=== PATIENT | female | born 1970 | race Caucasian/White ===

== ENCOUNTER → 2019-12-24 11:17 | Outpatient (BNVA) | payer OTHER, BC, SELFPAY | PROVIDERS: Family Provider Internal Medicine; PCP Internal Medicine; Visit Provider Internal Medicine Rheumatology | DX: M32.9 Systemic lupus erythematosus, unspecified (principal); R53.83 Other fatigue; Z79.899 Other long term (current) drug therapy; Z11.59 Encounter for screening for other viral diseases; Z72.89 Other problems related to lifestyle | CPT/HCPCS: 36415; 80076; 81001; 82306; 82565; 82570; 83540; 84156; 84439; 84443; 85025; 85651; 86140; 86160; 86480; 86618; 86666; 86704; 86757; 86803; 87340 ==

== ENCOUNTER → 2020-06-06 11:31 | Outpatient (BNVA) | payer OTHER, BC, SELFPAY | PROVIDERS: Family Provider Internal Medicine; PCP Internal Medicine; Visit Provider Internal Medicine Rheumatology | DX: M32.9 Systemic lupus erythematosus, unspecified (principal); Z79.899 Other long term (current) drug therapy; R76.8 Other specified abnormal immunological findings in serum; M79.7 Fibromyalgia; M25.551 Pain in right hip; R21 Rash and other nonspecific skin eruption; M70.61 Trochanteric bursitis, right hip; Y93.9 Activity, unspecified | CPT/HCPCS: 36415; 80076; 81001; 82565; 82570; 84156; 85025; 85651; 86140; 86160; 99214 ==

== ENCOUNTER → 2020-06-28 16:08 | Outpatient (BNVA) | payer OTHER, BC, SELFPAY | PROVIDERS: Family Provider Internal Medicine; PCP Internal Medicine; Visit Provider Internal Medicine Rheumatology | DX: M32.9 Systemic lupus erythematosus, unspecified (principal); M79.7 Fibromyalgia; R21 Rash and other nonspecific skin eruption; K57.92 Diverticulitis of intestine, part unspecified, without perforation or abscess without bleeding; M17.0 Bilateral primary osteoarthritis of knee; M70.61 Trochanteric bursitis, right hip; Z79.899 Other long term (current) drug therapy; Y93.9 Activity, unspecified | CPT/HCPCS: 99214 ==

== ENCOUNTER 2020-07-11 14:10 | Outpatient (CLI) | payer OTHER, BC, SELFPAY ==
--- NOTE | 2020-07-11 14:18 | MM_ITS ---
WS: [id number] Exam: [id number] Date/Time of Exam: 07/11/2020 2:21 PM Reason For Exam: SCREENING VIEWS: MLO and CC views both breasts. Comparison made with prior exam of 08/01/2016. Findings: There was no sign of mass, architectural distortion or suspicious calcification in either breast. Fa tty MM/[id number] Impression: BI-RADS: 2-Benign FOLLOW-UP: 1 Year Follow-up This mammogram was also analyzed by the Computer Aided Detection System R2 Imag e Scientific Investigator.
== END 2020-07-11 14:11 | disposition home or self-care (01) ==
LOC: RADSHAW 14:16
PROVIDERS: PCP Internal Medicine; Visit Provider Obstetrics & Gynecology
DX: Z12.31 Encounter for screening mammogram for malignant neoplasm of breast (principal)
CPT/HCPCS: 77067

== ENCOUNTER → 2020-08-30 12:54 | Outpatient (BNVA) | payer OTHER, BC, SELFPAY | PROVIDERS: PCP Internal Medicine; Visit Provider Internal Medicine Rheumatology | DX: M32.9 Systemic lupus erythematosus, unspecified (principal); Z79.899 Other long term (current) drug therapy; M25.551 Pain in right hip; M79.7 Fibromyalgia; M18.12 Unilateral primary osteoarthritis of first carpometacarpal joint, left hand; R76.8 Other specified abnormal immunological findings in serum | CPT/HCPCS: 36415; 81001; 82570; 84156; 99214 ==

== ENCOUNTER → 2020-11-24 16:16 | Outpatient (BNVA) | payer OTHER, BC, SELFPAY | PROVIDERS: PCP Internal Medicine; Visit Provider Nurse Practitioner Family | DX: R30.0 Dysuria (principal) | CPT/HCPCS: 81000; 87086 ==

== ENCOUNTER → 2021-01-03 15:07 | Outpatient (BNVA) | payer OTHER, BC, SELFPAY | PROVIDERS: PCP Internal Medicine; Visit Provider Internal Medicine Rheumatology | DX: M32.9 Systemic lupus erythematosus, unspecified (principal); Z79.899 Other long term (current) drug therapy; G47.33 Obstructive sleep apnea (adult) (pediatric); M79.7 Fibromyalgia; M18.12 Unilateral primary osteoarthritis of first carpometacarpal joint, left hand; K57.92 Diverticulitis of intestine, part unspecified, without perforation or abscess without bleeding | CPT/HCPCS: 99214 ==

== ENCOUNTER 2021-02-15 10:14 | Outpatient (CLI) | payer OTHER, BC, SELFPAY ==
--- NOTE | 2021-02-15 10:24 | NMR_ITS ---
PROCEDURE INFORMATION: Exam: ID Kidney Imaging with Vascular Flow and Function, Single Study, with Pharmacological Intervention Exam date and time: 02/15/2021 10:24 AM Age: 50 years old Clinical indication: Condition or disease; Other: Upj obstruction TECHNIQUE: Imaging protocol: Kidney imaging morphology with angiographic images were obtained after diuretic or AWAIS inhibitor was administered and additional planar images were obtained. after radiopharmaceutical administration. This radiotracer utilized for calculation of the GFR. Radiopharmaceutical: 10.9 mCi Tc99m DTPA, 20 mg LASIX. COMPARISON: ID Renal w Lasix [place] [id number] 02/03/2017 8:21 AM FINDINGS: Medications: The Lasix renogram was performed using 20 mg of Lasix at 10 minutes Kidneys: The angiographic phase shows unremarkable relative decreased radiotracer uptake in the right kidney compared to the left, essentially unchanged. Peak perfusion in the left kidney occurs at approximately 45 seconds (previously occurred at approximately 23 seconds). Accumulation of radiotracer uptake within a dilated right renal pelvis. Left renal function: Left 58% at 2 to 3 minutes (previously 62%). Time to peak in the left kidney is 3.62 minutes, essentially unchanged. Right renal function: Right 42% at 2 to 3 minutes (previously 38%). Time to peak in the right kidney is 7.62 minutes (previously 13.7 minutes). Left renal GFR: Left calculated GFR (ml/min) is 51.2 (previously 67.7). Right renal GFR: Right calculated GFR (ml/min) is 37.1 (previously 41.6). Post Lasix Left Kidney: Left T1/2 is 9.75 minutes after Lasix. Slight bump in renal excretion after Lasix. Post Lasix Right kidney: Right T1/2 is 8.5 minutes after Lasix. Slight bump in renal excretion after Lasix. ID/ID renal flow w pharm [id number] IMPRESSION: 1. Relative decreased perfusion in the right kidney compared to the left, essentially unchanged. 2. Perfusion in the left kidney is delayed compared to the previous nuclear medicine study. 3. Split renal function is 42% on the right and 58% on the left. 4. Decreasing GFR in both kidneys. 5. Stable dilatation of the right renal pelvis.
== END 2021-02-15 10:15 | disposition home or self-care (01) ==
LOC: RAD 10:16
PROVIDERS: PCP Internal Medicine; Visit Provider Urology
DX: N13.5 Crossing vessel and stricture of ureter without hydronephrosis (principal)
CPT/HCPCS: 78708; A9539; J1940

== ENCOUNTER 2021-03-27 14:04 | Outpatient (CLI) | payer OTHER, BC, SELFPAY ==
--- NOTE | 2021-03-27 | US_ITS ---
WS: [id number] Right upper quadrant ultrasound, 03/27/2021 Clinical Data: LIVER CYST Comparison: None. Findings: The gallbladder is absent The common bile duct is 0.20 cm. Liver shows no masses or dilated intrahepatic ducts. There is a simple cyst of the right lobe measur ing 1.90 x 1.98 x 2.25 cm. There is a complex left lobe cyst measuring 1.48 x 1.56 x 1.84 cm which downey s a mixed echotexture. The pancreas is not obscured by overlying bowel gas and no cyst, pseudocyst, or evidence of pancreati tis is noted. Right kidney measures 11.6 cm and no cyst, masses or hydronephrosis can be seen. The aorta and inferior vena cava show no vascular abnormalities. US/US liver [id number] Impression: 1. Absent gallbladder. 2. 2 cysts of the liver.
== END 2021-03-27 14:05 | disposition home or self-care (01) ==
LOC: RADOUTREAD 14:24
PROVIDERS: PCP Internal Medicine; Visit Provider Internal Medicine
DX: K76.89 Other specified diseases of liver (principal); Z90.49 Acquired absence of other specified parts of digestive tract
CPT/HCPCS: 76705

== ENCOUNTER → 2022-01-23 16:06 | Outpatient (BNVA) | payer OTHER, BC, SELFPAY | PROVIDERS: PCP Internal Medicine; Visit Provider Internal Medicine Rheumatology | DX: M32.9 Systemic lupus erythematosus, unspecified (principal); M79.7 Fibromyalgia; M25.551 Pain in right hip; M25.561 Pain in right knee; M70.51 Other bursitis of knee, right knee; Z79.899 Other long term (current) drug therapy; M17.11 Unilateral primary osteoarthritis, right knee | CPT/HCPCS: 73502; 73562; 80076; 81001; 82565; 82570; 84156; 85025; 86140 ==

== ENCOUNTER 2022-01-24 08:56 | Outpatient (CLI) | payer OTHER, BC, SELFPAY ==
--- NOTE | 2022-01-24 09:18 | MM_ITS ---
WS: [id number] BILATERAL 3D TOMOSYNTHESIS DIGITAL SCREENING MAMMOGRAPHY WITH CAD CLINICAL INFORMATION: SCREENING HISTORY: Screening mammogram. No current complaints. COMPARISON: July 11, 2020 TECHNIQUE: Bilateral CC and MLO views. FINDINGS: Scattered fibroglandular densities bilaterally. No suspicious focal mass, asymmetry, calcifications, or architectural distortion. No evidence of malignancy. MM/[id number] IMPRESSION: BI-RADS: 1-Negative FOLLOW UP: 1 Year Follow-up Recommend return to annual screening mammography.
== END 2022-01-24 08:57 | disposition home or self-care (01) ==
LOC: RAD 08:57
PROVIDERS: PCP Internal Medicine; Visit Provider Internal Medicine
DX: Z12.31 Encounter for screening mammogram for malignant neoplasm of breast (principal)
CPT/HCPCS: 77063; 77067

== ENCOUNTER → 2022-11-12 12:22 | Outpatient (BNVA) | payer OTHER, BC, SELFPAY | PROVIDERS: PCP Internal Medicine; Visit Provider Internal Medicine Rheumatology | DX: M32.9 Systemic lupus erythematosus, unspecified (principal); Z79.899 Other long term (current) drug therapy; M79.7 Fibromyalgia | CPT/HCPCS: 80076; 82565; 85025; 86140 ==

== ENCOUNTER 2022-12-13 18:50 | Emergency (ER) | payer OTHER, BC, SELFPAY ==
[2022-12-13 19:05] VITALS: BP 138/57; PULSE 79; RESP 16; TEMP 36.8; O2SAT 98
[2022-12-13 20:45] LABS: Basophils # 0.1 10^3/uL (0.0-0.1); Eosinophils # 0.2 10^3/uL (0.0-0.8); Eosinophils % 3.3 %; Hematocrit 43.6 % (37.0-47.0); Hemoglobin 13.1 g/dL (11.5-15.3); Lymphocytes # 2.5 10^3/uL (0.8-4.8); Mean Corpuscular Hemoglobin 28.5 pg (28.0-34.0); Monocytes # 0.4 10^3/uL (0.2-0.9); Monocytes % 5.7 %; Neutrophils # 3.96 10^3/uL (1.8-7.7); Neutrophils % 54.9 %; Nucleated Red Blood Cells % 0 %; Platelet Count 245 10^3/cmm (130-400); Red Blood Count 4.59 10^6/uL (4.1-5.3); White Blood Count 7.2 10^3/uL (4.0-10.0)
[2022-12-13 21:06] LABS: Alanine Aminotransferase 18 U/L (0-33); Albumin Level 4.1 g/dL (3.5-5.2); Alkaline Phosphatase 100 U/L (35-105); Blood Urea Nitrogen 12 mg/dL (6-20); Calcium 9.1 mg/dL (8.5-10.5); Carbon Dioxide 21 mmol/L (22-29); Chloride 103 mmol/L (98-107); Globulin 2.6 g/dL (1.3-4.6); Glomerular Filtration Rate 104.2 mL/min (90-130); Glucose 93 mg/dL (65-115); Osmolality Calculated 283 mOsm/kg (285-295); Sodium 137 mmol/L (136-145); Total Bilirubin 0.2 mg/dL (0.15-1.2); Total Protein 6.7 g/dL (6.6-8.7)
[2022-12-13 21:08] LABS: Anion Gap 17.2 (5-19); Potassium 4.2 mmol/L (3.5-5.1)
[2022-12-13 21:09] LABS: Aspartate Amino Transferase 18 U/L (0-32)
[2022-12-13 22:01] LABS: Lipase 36 U/L (13-60)
[2022-12-13 23:09] VITALS: BP 126/68; PULSE 78; RESP 18
[2022-12-13 23:24] LABS: Add Urine Microscopic? NO; Charge for UA Resulting for Rev
--- NOTE | 2022-12-13 23:30 | CTR_ITS ---
PROCEDURE INFORMATION: Exam: CT Abdomen And Pelvis With Contrast Exam date and time: 12/14/2022 12:01 AM Age: 52 years old Clinical indication: Abdominal pain; Generalized; Additional info: Mid abdominal pain, large hernia, left abdominal swelling, just finished tx for TECHNIQUE: Imaging protocol: Computed tomography of the abdomen and pelvis with contrast. Radiation optimization: All CT scans at this facility use at least one of these dose optimization techniques: automated exposure control; mA and/or kV adjustment per patient size (includes targeted exams where dose is matched to clinical indication); or iterative reconstruction. Contrast material: OMNI 350; Contrast volume: 100 ml; Contrast route: INTRAVENOUS (IV); REPORTING DATA: Count of CT and Cardiac NM exams in prior 12 months: This patient has received 0 known CTs and 0 known cardiac nuclear medicine studies in the 12 months prior to the current study. COMPARISON: CT abdomen pelvis w con* [id number] 07/16/2019 7:22 PM RADIATION DOSE METRICS: Total DLP (mGy-cm): 1197.21 FINDINGS: Diaphragm: Small hiatal hernia. Liver: Hepatic steatosis. Cirrhotic liver suspected. Right hepatic lobe cyst. Gallbladder and bile ducts: Cholecystectomy. Pancreas: Normal. No ductal dilation. Spleen: Normal. No splenomegaly. Adrenal glands: Normal. No mass. Kidneys and ureters: Left kidney cyst, negative for follow up. Stable right kidney renal pelvis caliectasis. Stomach and bowel: Diverticulosis without diverticulitis. Appendix: No evidence of appendicitis. Intraperitoneal space: Unremarkable. No free air. No significant fluid collection. Vasculature: Unremarkable. No abdominal aortic aneurysm. Lymph nodes: Unremarkable. No enlarged lymph nodes. Urinary bladder: Unremarkable as visualized. Reproductive: Unremarkable as visualized. Bones/joints: Unremarkable. No acute fracture. Soft tissues: Large abdominal wall hernia containing bowel and omentum without dilation. CT/CT abdomen pelvis w con* [id number] IMPRESSION: 1. Negative for focal acute inflammatory process in the abdomen or pelvis. 2. Hepatic steatosis. 3. Cirrhotic liver suspected. 4. Cholecystectomy. 5. Right hepatic lobe cyst. 6. Small hiatal hernia. 7. Left kidney cyst, negative for follow up. 8. Large abdominal wall hernia containing bowel and omentum without dilation. 9. Diverticulosis without diverticulitis. 10. Stable right kidney renal pelvis caliectasis. COMMENTS: Consistent with the [employer] [employer]'s Incidental Findings Committee white paper (J Am Darius Radiol 2018): Any incidental renal lesion less than 1 cm or classified as too small to characterize, or any incidental cystic renal lesion characterized as simple-appearing, is likely benign. No follow-up imaging is recommended for these lesions per consensus recommendations based on imaging criteria.
[2022-12-13 23:31] LABS: Bilirubin Urine Neg (Negative); Blood Urine Neg (Negative); Glucose Urine UA Norm (Normal); Ketones Urine Negative (Negative); Leukocyte Esterase Urine Negative (Negative); Nitrate Urine Negative (Negative); Protein Urine Neg (Negative); Urine Appearance Clear (CLEAR); Urine Color Yellow (Yellow); Urobilinogen Urine Norm (Negative); pH Urine 6 (5-7)
--- NOTE | 2022-12-13 23:32 | ED_ITS ---
HPI - Abdominal Pain General: Chief Complaint: Abdominal Pain Stated Complaint: hernia, abd pain Time Seen by Provider: 12/13/22 23:00 Source: patient Mode of arrival: ambulatory Limitations: no limitations History of Present Illness: Patient presents emergency department today for evaluation treatment of mid and left-sided abdominal pain. Patient reports a recent history of diverticulitis for which she was seen and evaluated by her primary care doctor through [facility]. She states she was put on Cipro and Flagyl. She states she did have a hard time tolerating the Flagyl and states she did not take her last day or so of medication due to the diarrhea she was experiencing she did notice im provement and resolution of her left lower quadrant pain from her diverticulitis. However, she reports she is now having mid and left-sided abdominal pain. She has felt somewhat nauseated but has not had any vomiting. She has indicated that her bowel movements have returned back to her normal. S he has had chills but no fevers. She is still tolerating oral intake but, states her stomach feels extremely bloated. She has not had any dysuria and denies any mid back pain. She does have a known hernia. She reports she had a vertical in the past which resulted in a hernia which she states Jake had repaired many years ago. However, it started to return and, she has been seen and evaluated for repair but, was told she needs to lose weight. She reports it is continue to get worse and now has a second opinion through [facility] scheduled in a couple of weeks. However, she is concerned that the hernia may have gotten bigger and is beginning to cause her pain. She denies any known excessive straining or lifting recently. Review of Systems General: Reports: 10 or more systems reviewed and unremarkable except in HPI and below PFSH ED PFSH: Medical History Arthritis of carpometacarpal (CMC) joint of left thumb Fibromyalgia Greater trochanteric pain syndrome of right lower extremity High risk medication use Immunization counseling Pes anserine bursitis B/L Skin rash SLE (systemic lupus erythematosus) Tick bite Family History Other CAD (coronary artery disease) Cancer Diabetes Hypertension Rheumatoid arthritis Stroke Denies family history of Systemic lupus erythematosus (SLE) in adult Social History Smoking and tobacco status: never smoked Second hand smoke exposure: No Alcohol intake: never Substance/Drug Use: never Lives independently: Yes Household members: spouse Marital status: Current gender identity: Female Special mau needs: No Physical Exam Const: COMMON NORMALS: no acute distress, patient oriented x3 and alert HENMT: COMMON NORMALS: normocephalic, atraumatic, hearing grossly normal bilaterally and moist oral mucous membranes HEAD & SCALP: normocephalic and atraumatic Eye: COMMON NORMALS: Equal, round and reactive pupils present, EOMs intact bilaterally and conjunctivae normal CONJUNCTIVA: Yes conjunctivae normal PUPIL: Yes Equal, round and reactive pupils present Neck/C-Spine: COMMON NORMALS: full ROM and no JVD Lymph: LYMPHATIC: no lymphadenopathy noted Resp: COMMON NORMALS: normal respiratory effort, No retractions, No use of accessory muscles and clear to auscultation bilaterally AUSCULTATION: clear to auscultation bilaterally Cardio: COMMON NORMALS: no JVD, regular rate and regular rhythm RATE: regular rate RHYTHM: regular rhythm GI: OTHER: Patient does have auscultated bowel sounds throughout. However, patient has obvious bulging and swelling on the left side of her abdomen just off of the periumbilical region. She is tender to palpation in this area. Abdomen is still soft. She has no left lower quadrant tenderness and no left upper quadr ant tenderness. Patient has a wide, vertical scar through the umbilical region from previous surgery. : COMMON NORMALS: Yes no CVA tenderness BLADDER/KIDNEY EXAM: Yes no CVA tenderness Back/Pelvis: COMMON NORMALS: no CVA tenderness, no thoracic nor lumbar tenderness and thoraco-lumbar ROM normal Extremity: COMMON NORMALS: normal to inspection, full ROM and capillary refill normal Neuro: COMMON NORMALS: patient oriented x3 SENSORIUM/ORIENTATION: Yes alert Psych: COMMON NORMALS: mental status grossly normal, Normal thought process present, cooperative, normal affect and activity/motor behavior normal THOUGHT PROCESS: Normal thought process present Skin: COMMON NORMALS: no rashes or lesions noted and no wounds GENERAL SKIN EXAM: no rashes or lesions noted Course Vital Signs: Vital signs: Vital Signs Temperature 98.3 F 12/13/22 19:05 Pulse Rate 78 12/13/22 23:09 Respiratory Rate 18 12/13/22 23:09 Blood Pressure 126/68 12/13/22 23:09 Pulse Oximetry 98 12/13/22 19:05 Oxygen Delivery Me thod Room Air 12/13/22 19:05 MDM - Abdominal Pain Medical Decision Making Patient presented to the emergency department today for evaluation treatment of mid abdominal pain. Patient was recently treated for diverticulitis but, is hemodynamically stable without fever and has not been having diarrhea. Patient's lab work is generally unremarkable without any signs of elevated white blood cell count. Urinalysis is also clear. However, physical exam does show a bulge to the left side of her mid abdomen. She indicated a history of her hernia and with the obvious bulging and tenderness on her examination, did proceed on with a CT scan. CT had some incidental findings including liver findings and kidney cyst but, also found a large abdominal wall hernia with bowel and omentum though there was no signs of dilatation, inflammation, or incarceration. Patient has an upcoming appointment with general surgery to be evaluated for this hernia in a couple of weeks. At this time, I think she is stable to return home but, went over strict return precautions for signs of incarcerated hernia resulting in decreased blood flow to the bowel. Explained that this becomes a surgical emergency for which she is to be seen immediately. Patient is going to sign a medical release form to allow her imaging from today to be sent to her [facility] general surgeon to be evaluated and looked over at her appointment. Differential Diagnosis Likely abdominal pain, acute appendicitis, constipation, diverticulitis, gastroenteritis and small bowel obstruction Lab Data 12/13/22 20:37 12/13/22 20:37 Labs/Radiology: Radiology Impressions Abdomen/Pelvis CT 12/13/22 23:30 IMPRESSION: 1. Negative for focal acute inflammatory process in the abdomen or pelvis. 2. Hepatic steatosis. 3. Cirrhotic liver suspected. 4. Cholecystectomy. 5. Right hepatic lobe cyst. 6. Small hiatal hernia. 7. Left kidney cyst, negative for follow up. 8. Large abdominal wall hernia containing bowel and omentum without dilation. 9. Diverticulosis without diverticulitis. 10. Stable right kidney renal pelvis caliectasis. COMMENTS: Consistent with the [place] [employer]'s Incidental Findings Committee white paper (J Am Darius Radiol 2018): Any incidental renal lesion less than 1 cm or classified as too small to characterize, or any incidental cystic renal lesion characterized as simple-appearing, is likely benign. No follow-up imaging is recommended for these lesions per consensus recommendations based on imaging criteria. Laboratory Results WBC 7.2 10^3/uL (4.0-10.0) 12/13/22 20: RBC 4.59 10^6/uL (4.1-5.3) 12/13/22 20: Hgb 13.1 g/dL (11.5-15.3) 12/13/22 20: Hct 43.6 % (37.0-47.0) 12/13/22 20: MCV 95.0 fl (81-99) 12/13/22 20: MCH 28.5 pg (28.0-34.0) 12/13/22 20: MCHC 30.0 g/dL (30.0-36.0) 12/13/22 20: RDW 13.0 % (12.1-15.1) 12/13/22 20: Plt Count 245 10^3/cmm (130-400) 12/13/22 20: MPV 10.0 fL (7.4-10.4) 12/13/22 20: Neut % (Auto) 54.9 % 12/13/22 20: Lymph % (Auto) 35.0 % 12/13/22 20:37 [place] % (Auto) 5.7 % 12/13/22 20:37 Eos % (Auto) 3.3 % 12/13/22 20: Baso % (Auto) 1.0 % 12/13/22 20: Neut # (Auto) 3.96 10^3/uL (1.8-7.7) 12/13/22 20:37 Lymph # (Auto) 2.5 10^3/uL (0.8-4.8) 12/13/22 20:37 [place] # (Auto) 0.4 10^3/uL (0.2-0.9) 12/13/22 20:37 Eos # (Auto) 0.2 10^3/uL (0.0-0.8) 12/13/22 20:37 Baso # (Auto) 0.1 10^3/uL (0.0-0.1) 12/13/22 20:37 Nucleated RBC % (auto) 0 % 12/13/22 20:37 Nucleated RBCs # 0.0 /100WBC 12/13/22 20:37 Sodium 137 mmol/L (136-145) 12/13/22 20:37 Potassium 4.2 mmol/L (3.5-5.1) 12/13/22 20:37 Chloride 103 mmol/L (98-107) 12/13/22 20:37 Carbon Dioxide 21 mmol/L (22-29) L 12/13/22 20:37 Anion Gap 17.2 (5-19) 12/13/22 20:37 BUN 12 mg/dL (6-20) 12/13/22 20:37 Creatinine 0.6 mg/dL (0.5-0.9) 12/13/22 20:37 GFR Calculation 104.2 mL/min (90-130) 12/13/22 20:37 Glucose 93 mg/dL (65-115) 12/13/22 20:37 Calculated Osmolality 283 mOsm/kg (285-295) L 12/13/22 20:37 Calcium 9.1 mg/dL (8.5-10.5) 12/13/22 20:37 Total Bilirubin 0.2 mg/dL (0.15-1.2) 12/13/22 20:37 AST 18 U/L (0-32) 12/13/22 20:37 ALT 18 U/L (0-33) 12/13/22 20:37 Alkaline Phosphatase 100 U/L (35-105) 12/13/22 20:37 C-Reactive Protein 3.0 mg/L (0.0-4.9) 12/13/22 20:37 Total Protein 6.7 g/dL (6.6-8.7) 12/13/22 20:37 Albumin 4.1 g/dL (3.5-5.2) 12/13/22 20:37 Globulin 2.6 g/dL (1.3-4.6) 12/13/22 20:37 Lipase 36 U/L (13-60) 12/13/22 20:37 Urine Color Yellow (Yellow) 12/13/22 23:06 Urine Appearance Clear (CLEAR) 12/13/22 23:06 Urine pH 6 (5-7) 12/13/22 23:06 Ur Specific [place] 1.020 (1.005-1.030) 12/13/22 23:06 Urine Protein Neg (Negative) 12/13/22 23:06 Urine Glucose (UA) Norm (Normal) 12/13/22 23:06 Urine Ketones Negative (Negative) 12/13/22 23:06 Urine Blood Neg (Negative) 12/13/22 23:06 Urine Nitrate Negative (Negative) 12/13/22 23:06 Urine Bilirubin Neg (Negative) 12/13/22 23:06 Urine Urobilinogen Norm mg/dL (Negative) 12/13/22 23:06 Ur Leukocyte Esterase Negative (Negative) 12/13/22 23:06 Discharge Plan Discharge Patient Disposition: Home Clinical Impression: Abdominal wall hernia Condition: Stable Prescriptions: No Action montelukast [Singulair] 10 mg tablet 10 mg PO DAILY hydrochlorothiazide 12.5 mg tablet 12.5 mg PO DAILY lisinopril 5 mg tablet 5 mg PO DAILY oral contraceptives PO cholecalciferol (vitamin D3) 50 mcg (2,000 unit) capsule 50 mcg PO DAILY ascorbate calcium (vitamin C) 500 mg tablet 500 mg PO DAILY acetylcysteine [NAC] 600 mg capsule 600 mg PO BID levocetirizine [Xyzal] 5 mg tablet 5 mg PO DAILY bupropion HCl 75 mg tablet 75 mg PO DAILY hydroxychloroquine 200 mg tablet 200 mg PO BID Qty: 90 1RF prednisone 10 mg tablet See Rx Instructions PO .COMPLEX PRN (Reason: joint pain) Qty: 60 1RF Rx Instructions: Take 2 tabs daily for 5 days and call physician with report orally PRN; diclofenac sodium 1 % gel 2 g TOPICAL QID Qty: 100 2RF Rx Instructions: apply to affected area as needed Discharge Orders: Discharge ED (Routine); Ordered 12/14/22 Ordered By: Christa Swift Referrals: Pancho Roper DO [Primary Care Provider] - Discharge Diet: Usual diet Discharge Activity: Increase activity as tolerated Patient Instructions: Abdominal Hernia Activity Restrictions/Additional Instructions: Lab work today shows no acute concerns for infection. The scan of your abdomen shows resolution of your diverticulitis but, you do have a large abdominal wall hernia containing both intestine and omentum. Time, there is no signs of inflammation concerning for any bowel strangulation or incarceration. Keep the upcoming appointment you have with general surgery to discuss your hernia as I do think you would benefit from some type of repair due to its size. I have given you some information about abdominal wall hernias which does go over signs and symptoms including bloody stools, fever, or vomiting for which she need to be seen and reevaluated immediately through the emergency department. These could all indicate loss of blood flow to the bowel which becomes a surgical janelle gency. I also recommend getting a medical record release to allow the general surgeon at [facility] to receive a copy of your CT examination from today to review during your appointment. Coding Level of Care Code ED Server Cashier for German Kruger
== END 2022-12-14 01:30 | disposition home or self-care (01) ==
PROVIDERS: Emergency Medicine; Emergency Provider Physician Assistant; PCP Internal Medicine
DX: K43.9 Ventral hernia without obstruction or gangrene (principal); M32.9 Systemic lupus erythematosus, unspecified
CPT/HCPCS: 36415; 74177; 80053; 81003; 83690; 85025; 86140; 99285; Q9967

== ENCOUNTER → 2023-02-18 12:21 | Outpatient (BNVA) | payer OTHER, BC, SELFPAY | PROVIDERS: PCP Internal Medicine; Visit Provider Internal Medicine Rheumatology | DX: M32.9 Systemic lupus erythematosus, unspecified (principal); Z79.899 Other long term (current) drug therapy; M79.7 Fibromyalgia; M19.90 Unspecified osteoarthritis, unspecified site | CPT/HCPCS: 36415; 80076; 82306; 82565; 84439; 84443; 85025; 85651; 86140 ==

== ENCOUNTER 2023-06-01 15:35 | Emergency (ER) | payer OTHER, BC, SELFPAY ==
[2023-06-01 15:39] VITALS: BP 125/68; PULSE 86; RESP 16; TEMP 36.8; O2SAT 97; BMI 38.4
--- NOTE | 2023-06-01 16:20 | ED_ITS ---
HPI - Abdominal Pain General: Chief Complaint: Abdominal Pain Stated Complaint: abd pain Time Seen by Provider: 06/01/23 15:45 Source: patient Mode of arrival: ambulatory History of Present Illness: 52-year-old female who presents emergency room with complaints of intermittent cramping left lower quadrant for the last 2 weeks no nausea or vomiting she has had some loose stools no fever sweats or chills she was seen at the emergency room in [facility] had a CT done she has a hernia of the abdominal wall in the left lower quadrant she has seen a surgeon there is little inflammation around the hernia but no entrapped bowel no obstruction that advised her at some point she need to have it fixed she still having persistent cramping and discomfort. At that same visit she was found to have a UTI was started on Keflex she stopped the Keflex because she found seems to worsen the diarrhea. She denies any hematochezia melena hematemesis coffee-ground emesis. No hematuria. MD elicited complaint: abdominal pain Onset (ago): week(s) (2) Pain Consistency: intermittent Location: LLQ Severity: mild Quality: cramping Radiation: none Exacerbating factors: nothing Relieving factors: nothing Associated Symptoms: Reports GI cramping, diarrhea, nausea and vomiting; Denies chills, dysuria, fever(s), hematochezia, melena and poor appetite Review of Systems Const: Denies: fever(s) or chills Card: Denies: chest pain Resp: Denies: dyspnea GI: Reports: nausea, vomiting, diarrhea and GI cramping; Denies: abdominal pain, hematochezia or melena : Denies: dysuria, urinary frequency or urinary urgency Musc: Denies: neck pain or back pain Skin/Breast: Denies: rash PFSH ED PFSH: Medical History Arthritis of carpometacarpal (CMC) joint of left thumb Fibromyalgia Greater trochanteric pain syndrome of right lower extremity High risk medication use Immunization counseling Inflammatory arthritis Pes anserine bursitis B/L Skin rash SLE (systemic lupus erythematosus) Tick bite Family History Other CAD (coronary artery disease) Cancer Diabetes Hypertension Rheumatoid arthritis Stroke Denies family history of Systemic lupus erythematosus (SLE) in adult Social History Smoking and tobacco status: never smoked Second hand smoke exposure: No Alcohol intake: never Substance/Drug Use: never Lives independently: Yes Household members: spouse Marital status: Current gender identity: Female Special mau needs: No Physical Exam Const: COMMON NORMALS: no acute distress GENERAL APPEARANCE: cooperative and comfortable ORIENTATION/CONSCIOUSNESS: Yes awake, Yes oriented to person, Yes oriented to place and Yes oriented to time HENMT: COMMON NORMALS: normocephalic, atraumatic and hearing grossly normal bilaterally HEAD & SCALP: normocephalic and atraumatic Resp: COMMON NORMALS: normal respiratory effort, No retractions, No use of accessory muscles and clear to auscultation bilaterally AUSCULTATION: clear to auscultation bilaterally Cardio: COMMON NORMALS: regular rate, regular rhythm and No murmurs present (Cardio) RATE: regular rate RHYTHM: regular rhythm GI: COMMON NORMALS: Soft to palpation and No hepatosplenomegaly present AUSCULTATION: Yes normoactive bowel sounds PALPATION: Yes Soft to palpation, No Tenderness to palpation present (GI), No Guarding due to palpation present (GI) and Yes No hepatosplenomegaly present Extremity: COMMON NORMALS: normal to inspection, capillary refill normal, no clubbing, cyanosis or edema, no calf tenderness and no pedal edema Neuro: SENSORIUM/ORIENTATION: Yes oriented to person, Yes oriented to place and Yes oriented to time Skin: COMMON NORMALS: no rashes or lesions noted GENERAL SKIN EXAM: no rashes or lesions noted Course Vital Signs: Vital signs: Vital Signs Temperature 98.2 F 06/01/23 15:39 Pulse Rate 86 06/01/23 15:39 Respiratory Rate 16 06/01/23 15:39 Blood Pressure 125/68 06/01/23 15:39 Pulse Oximetry 97 06/01/23 15:39 Oxygen Delivery Me thod Room Air 06/01/23 15:39 MDM - Abdominal Pain Medical Decision Making Patient has persistent cystitis. On her exam there is no sign of obstruction. White count is normal. We will switch her to ciprofloxacin culture being done follow-up with the surgeon at [facility]. We did review the CT she had recently done at [facility] has a large ventral hernia no sign of strangulation. Since there is no clinical evidence of bowel obstruction at this time advanced imaging was not repeated Medical Records I reviewed the patient's medical records. Lab Data I reviewed the patient's lab results. 06/01/23 16:11 06/01/23 16:11 Labs/Radiology: Laboratory Results WBC 5.59 10^3/uL (3.29-11.43) 06/01/23 16:11 RBC 4.51 10^6/uL (3.85-5.65) 06/01/23 16:11 Hgb 13.40 g/dL (11.27-16.99) 06/01/23 16:11 Hct 40.5 % (36-47) 06/01/23 16:11 MCV 89.8 fl (85-98) 06/01/23 16:11 MCH 29.7 pg (27-33) 06/01/23 16:11 MCHC 33.1 g/dL (30-55) 06/01/23 16:11 RDW 13.3 % (12.1-15.1) 06/01/23 16:11 Plt Count 250 10^3/cmm (157-399) 06/01/23 16:11 MPV 10.1 fL (7.4-10.4) 06/01/23 16:11 Neut % (Auto) 58.9 % 06/01/23 16:11 Lymph % (Auto) 31.3 % 06/01/23 16:11 [place] % (Auto) 6.6 % 06/01/23 16:11 Eos % (Auto) 2.1 % 06/01/23 16:11 Baso % (Auto) 0.9 % 06/01/23 16:11 Neut # (Auto) 3.29 10^3/uL (1.8-7.7) 06/01/23 16:11 Lymph # (Auto) 1.8 10^3/uL (0.8-4.8) 06/01/23 16:11 [place] # (Auto) 0.4 10^3/uL (0.2-0.9) 06/01/23 16:11 Eos # (Auto) 0.1 10^3/uL (0.0-0.8) 06/01/23 16:11 Baso # (Auto) 0.1 10^3/uL (0.0-0.1) 06/01/23 16:11 Nucleated RBC % (auto) 0 % 06/01/23 16:11 Nucleated RBCs # 0.0 /100WBC 06/01/23 16:11 Sodium 137 mmol/L (136-145) 06/01/23 16:11 Potassium 3.6 mmol/L (3.5-5.1) 06/01/23 16:11 Chloride 99 mmol/L (98-107) 06/01/23 16:11 Carbon Dioxide 27 mmol/L (22-29) 06/01/23 16:11 Anion Gap 14.6 (5-19) 06/01/23 16:11 BUN 10 mg/dL (6-20) 06/01/23 16:11 Creatinine 0.6 mg/dL (0.5-0.9) 06/01/23 16:11 GFR Calculation 104.2 mL/min (90-130) 06/01/23 16:11 Glucose 99 mg/dL (65-115) 06/01/23 16:11 Calculated Osmolality 283 mOsm/kg (285-295) L 06/01/23 16:11 Lactic Acid 0.8 mmol/L (0.5-2.2) 06/01/23 16:11 Calcium 10.0 mg/dL (8.5-10.5) 06/01/23 16:11 Total Bilirubin 0.4 mg/dL (0.15-1.2) 06/01/23 16:11 AST 22 U/L (0-32) 06/01/23 16:11 ALT 23 U/L (0-33) 06/01/23 16:11 Alkaline Phosphatase 101 U/L (35-105) 06/01/23 16:11 Total Protein 7.4 g/dL (6.6-8.7) 06/01/23 16:11 Albumin 4.6 g/dL (3.5-5.2) 06/01/23 16:11 Globulin 2.8 g/dL (1.3-4.6) 06/01/23 16:11 Urine Color Yellow (Yellow) 06/01/23 17:33 Urine Appearance Hazy (CLEAR) A 06/01/23 17:33 Urine pH 6 (5-7) 06/01/23 17:33 Ur Specific [place] 1.020 (1.005-1.030) 06/01/23 17:33 Urine Protein Trace (Negative) 06/01/23 17:33 Urine Glucose (UA) Norm (Normal) 06/01/23 17:33 Urine Ketones 1+ (Negative) H 06/01/23 17:33 Urine Blood Neg (Negative) 06/01/23 17:33 Urine Nitrate Negative (Negative) 06/01/23 17: Urine Bilirubin Neg (Negative) 06/01/23 17:33 Urine Urobilinogen Norm mg/dL (Negative) 06/01/23 17:33 Ur Leukocyte Esterase 2+ (Negative) H 06/01/23 17:33 Urine RBC 0-4 /hpf (0-2) H 06/01/23 17:33 Urine WBC 25-40 /hpf (0-5) H 06/01/23 17:33 Ur Squamous Epith Cells 10-15 /hpf (0-5) H 06/01/23 17:33 Amorphous Sediment Not Reportable 06/01/23 17:33 Urine Bacteria 1+ /hpf (NONE) H 06/01/23 17:33 No radiology studies performed this visit Discharge Plan Discharge Patient Disposition: Home Clinical Impression: Ventral hernia, Cystitis Condition: Stable Prescriptions: New Cipro 500 mg tablet 500 mg PO BID Qty: 14 0RF No Action montelukast [Singulair] 10 mg tablet 10 mg PO DAILY hydrochlorothiazide 12.5 mg tablet 12.5 mg PO DAILY lisinopril 5 mg tablet 5 mg PO DAILY oral contraceptives PO cholecalciferol (vitamin D3) 50 mcg (2,000 unit) capsule 50 mcg PO DAILY ascorbate calcium (vitamin C) 500 mg tablet 500 mg PO DAILY acetylcysteine [NAC] 600 mg capsule 600 mg PO BID diclofenac sodium 1 % gel 2 g TOPICAL QID Qty: 100 2RF Rx Instructions: apply to affected area as needed prednisone 10 mg tablet See Rx Instructions PO .COMPLEX PRN (Reason: joint pain) Qty: 30 1RF Rx Instructions: take 1 or 2 tabs as needed for joint pain flare for 3-7 days. PRN; hydroxychloroquine 200 mg tablet 200 mg PO BID Qty: 90 1RF Mounjaro 5 mg/0.5 mL pen injector 5 mg SUBCUT .WEEKLY 28 Days Qty: 2 0RF Mounjaro 10 mg/0.5 mL pen injector 10 mg SUBCUT .weekly 84 Days Qty: 6 1RF diazepam [Valium] 5 mg tablet 5 mg PO BID PRN (Reason: anxiety) Qty: 10 0RF Discharge Orders: Discharge ED (Routine); Ordered 06/01/23 Ordered By: Nakul Al Referrals: Pancho Roper DO [Primary Care Provider] - Discharge Diet: Usual diet Discharge Activity: Resume usual activity Patient Instructions: Urinary Tract Infection in Women (ED), Opioid Safety, Pain Management Coding Level of Care Code 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
[2023-06-01 16:29] LABS: Basophils # 0.1 10^3/uL (0.0-0.1); Basophils % 0.9 %; Eosinophils # 0.1 10^3/uL (0.0-0.8); Eosinophils % 2.1 %; Hematocrit 40.5 % (36-47); Lymphocytes # 1.8 10^3/uL (0.8-4.8); Lymphocytes % 31.3 %; Mean Corpuscular HGB Conc 33.1 g/dL (30-55); Mean Corpuscular Hemoglobin 29.7 pg (27-33); Mean Corpuscular Volume 89.8 fl (85-98); Mean Platelet Volume 10.1 fL (7.4-10.4); Monocytes # 0.4 10^3/uL (0.2-0.9); Monocytes % 6.6 %; Neutrophils # 3.29 10^3/uL (1.8-7.7); Neutrophils % 58.9 %; Nucleated Red Blood Cells % 0 %; Platelet Count 250 10^3/cmm (157-399); Red Blood Count 4.51 10^6/uL (3.85-5.65); Red Cell Distribution Width 13.3 % (12.1-15.1); White Blood Count 5.59 10^3/uL (3.29-11.43)
[2023-06-01 16:51] LABS: Lactic Sepsis W/Reflex 0.8 mmol/L (0.5-2.2)
[2023-06-01 16:52] LABS: Alanine Aminotransferase 23 U/L (0-33); Albumin Level 4.6 g/dL (3.5-5.2); Alkaline Phosphatase 101 U/L (35-105); Anion Gap 14.6 (5-19); Aspartate Amino Transferase 22 U/L (0-32); Blood Urea Nitrogen 10 mg/dL (6-20); Carbon Dioxide 27 mmol/L (22-29); Chloride 99 mmol/L (98-107); Globulin 2.8 g/dL (1.3-4.6); Glomerular Filtration Rate 104.2 mL/min (90-130); Glucose 99 mg/dL (65-115); Osmolality Calculated 283 mOsm/kg (285-295); Potassium 3.6 mmol/L (3.5-5.1); Sodium 137 mmol/L (136-145); Total Bilirubin 0.4 mg/dL (0.15-1.2); Total Protein 7.4 g/dL (6.6-8.7)
[2023-06-01 17:55] LABS: Add Urine Culture? No; Add Urine Microscopic? YES; Bacteria Urine 1+ /hpf; Bilirubin Urine Neg (Negative); Blood Urine Neg (Negative); Glucose Urine UA Norm (Normal); Ketones Urine 1+ (Negative); Leukocyte Esterase Urine 2+ (Negative); Nitrate Urine Negative (Negative); Protein Urine Trace (Negative); RBC Urine 0-4 /hpf (0-2); Urine Appearance Hazy (CLEAR); Urine Color Yellow (Yellow); Urobilinogen Urine Norm (Negative); WBC Urine 25-40 /hpf (0-5); pH Urine 6 (5-7)
== END 2023-06-01 18:18 | disposition home or self-care (01) ==
PROVIDERS: Emergency Provider Family Medicine; PCP Internal Medicine
DX: N30.90 Cystitis, unspecified without hematuria (principal); K43.9 Ventral hernia without obstruction or gangrene; M32.9 Systemic lupus erythematosus, unspecified
CPT/HCPCS: 36415; 80053; 81001; 83605; 85025; 87040; 99283

== ENCOUNTER 2023-07-11 08:02 | Outpatient (CLI) | payer OTHER, BC, SELFPAY ==
--- NOTE | 2023-07-11 08:55 | CT_ITS ---
WS: [id number] CT ABDOMEN AND PELVIS WITH AND WITHOUT CONTRAST HISTORY: right flank pain TECHNIQUE: Unenhanced 5 mm axial imaging first performed through the abdomen. Post contrast imaging t hrough the abdomen and pelvis. Oral contrast has been provided. Sagittal and coronal reformats are s ubmitted. All CT scans at [facility] use at least one of these dose optimization techniques: automated exposure control; mA and/or kV adjustment per patient size (includes targeted exams where d ose is matched to clinical indication); or iterative reconstruction. CONTRAST: Omnipaque 350; 95 mL IV. DLP: 2666.41 mGy.cm COMPARISON: 12/14/2022, 07/20/2017 and 07/16/2019 Lung bases are clear. Moderate-sized hiatal hernia. Heart is normal size. Small volume LEFT hepatic lobe. Previously described cyst has collapsed. Residual cyst is noted in th e LEFT hepatic lobe. There are a few additional smaller cystic masses in the RIGHT lobe which are unc hanged. No solid mass. Normal portal vein. Prior cholecystectomy. Normal spleen. Normal pancreas. No adrenal mass. RIGHT kidney: Normal size kidney. There is an extrarenal pelvis with very minimal caliectasis. Simila r to the study of 12/14/2022. The amount of caliectasis and dilatation of the renal pelvis has improve d since 2017. There is normal excretion from the kidney. The ureter is not dilated. There is change i n caliber suggesting a UPJ obstruction at the proximal ureter. There is also some increased soft tiss ue near the change in caliber. There may be some component or variation of a duplicated collecting sy stem. These findings have been present on prior studies. LEFT kidney: 1.8 cm cyst upper pole. No obstruction. 2 mm calcification nonobstructing lower pole. No GI tract obstruction. There is a large ventral abdominal wall hernia containing small bowel. No ob struction. Distal colonic diverticula without acute diverticulitis. Good filling of the urinary bladder on the delayed imaging. IMPRESSION: 1. Small RIGHT extrarenal pelvis with minimal RIGHT caliectasis which has been previously described o n multiple prior CTs. There is a slight change in caliber at the UP junction with associated mild sof t tissue thickening. Suggest UP junction obstruction. For further evaluation ureteroscopy may be nece ssary to further evaluate the soft tissue component at the UP junction. 2. No RIGHT renal calcification. 3. Collapsed previously described LEFT hepatic cyst. Additional smaller RIGHT hepatic cyst. 4. Prior cholecystectomy. 5. Small hiatal hernia. 6. Hepatic cyst. 7. Large ventral abdominal wall hernia containing nonobstructed small bowel.
[2023-07-11] MEDS: iohexol 350 mg/mL 500 mL Btl (per mL) IV (09:16)
== END 2023-07-11 08:03 | disposition home or self-care (01) ==
LOC: RAD 08:04
PROVIDERS: PCP Internal Medicine; Visit Provider Nurse Practitioner Family
DX: R10.31 Right lower quadrant pain (principal); N28.89 Other specified disorders of kidney and ureter; R31.9 Hematuria, unspecified; N13.30 Unspecified hydronephrosis; K44.9 Diaphragmatic hernia without obstruction or gangrene; K76.89 Other specified diseases of liver; K43.9 Ventral hernia without obstruction or gangrene; N39.0 Urinary tract infection, site not specified; Z98.890 Other specified postprocedural states
CPT/HCPCS: 74178; Q9967

== ENCOUNTER → 2023-07-21 09:39 | Outpatient (BNVA) | payer OTHER, BC, SELFPAY | PROVIDERS: PCP Internal Medicine; Visit Provider Nurse Practitioner Family | DX: N39.0 Urinary tract infection, site not specified (principal) | CPT/HCPCS: 87086 ==

== ENCOUNTER → 2023-09-02 17:43 | Outpatient (BNVA) | payer OTHER, BC, SELFPAY | PROVIDERS: PCP Internal Medicine; Visit Provider Registered Nurse Neonatal Intensive Care | DX: J02.9 Acute pharyngitis, unspecified (principal) | CPT/HCPCS: 87880 ==

== ENCOUNTER → 2023-10-23 15:05 | Outpatient (BNVA) | payer OTHER, BC, SELFPAY | PROVIDERS: PCP Internal Medicine; Visit Provider Internal Medicine Rheumatology | DX: Z79.899 Other long term (current) drug therapy (principal); M32.9 Systemic lupus erythematosus, unspecified; M79.7 Fibromyalgia | CPT/HCPCS: 36415; 80076; 82565; 82607; 82746; 83520; 85025; 86140 ==

== ENCOUNTER 2024-01-30 12:33 | Emergency (ER) | payer OTHER, BC, SELFPAY ==
[2024-01-30 12:37] VITALS: BP 122/68; PULSE 83; RESP 16; TEMP 36.4; O2SAT 97; BMI 39.1
--- NOTE | 2024-01-30 12:49 | W.ED.ABDPA2 ---
HPI - Abdominal Pain General: Chief Complaint: Abdominal Pain Stated Complaint: abd pain, nausea, chills Time Seen by Provider: 01/30/24 12:37 Source: patient Mode of arrival: ambulatory Limitations: no limitations History of Present Illness: Patient is a nice 53-year-old female here with complaints of left lower abdominal pain over the past week. Patient states she is been having progressively worsening left lower abdominal pain. She was seen at [facility] on Friday and diagnosed with diverticulitis and placed on Flagyl and Bactrim. Patient states she does have a history of diverticulitis. She states her symptoms have not improved much with the antibiotics. She is reporting chills. Patient states she has a known recurrent large left lower abdominal hernia. She states she actually just met with a surgeon in [place] last week who wanted her to lose some weight prior to surgical repair. Other abdominal surgeries include a cholecystectomy and section. She has noted some diarrhea. Still passing flatulence. She has felt nauseous without any episodes of emesis. No fevers. MD elicited complaint: abdominal pain Pertinent past history: diverticulitis and other (abdominal hernia) Onset (ago): day(s) Pain Consistency: intermittent Location: LLQ Severity: moderate Migration to: no migration Exacerbating factors: other (walking) Relieving factors: nothing Associated Symptoms: Reports chills, GI cramping, diarrhea and nausea; Denies dysuria, fever(s), hematochezia, hematemesis, melena and vomiting Related Data: Patient : No Review of Systems Const: Reports: chills; Denies: fever(s), body aches, fatigue or malaise Card: Denies: chest pain Resp: Denies: dyspnea GI: Reports: abdominal pain, nausea, diarrhea and GI cramping; Denies: vomiting, hematemesis, hematochezia or melena : Denies: flank pain, difficulty voiding, dysuria, urinary frequency, urinary urgency or urinary hesitancy Musc: Denies: back pain Skin/Breast: Denies: rash Neuro: Denies: dizziness REPLACED BY [facility] ED PFSH: Medical History Inflammatory arthritis Pes anserine bursitis B/L Arthritis of carpometacarpal (CMC) joint of left thumb Skin rash Greater trochanteric pain syndrome of right lower extremity Tick bite SLE (systemic lupus erythematosus) Fibromyalgia High risk medication use Immunization counseling Family History Other CAD (coronary artery disease) Cancer Diabetes Hypertension Rheumatoid arthritis Stroke Denies family history of Systemic lupus erythematosus (SLE) in adult Social History Smoking and tobacco/nicotine status: never used tobacco/nicotine Second hand smoke exposure: No Alcohol intake: never Substance/Drug Use: never Lives independently: Yes Household members: spouse Marital status: Current gender identity: Female Special mau needs: No Physical Exam Const: COMMON NORMALS: no acute distress, patient oriented x3, no limitations, alert and well nourished GENERAL APPEARANCE: cooperative NUTRITIONAL APPEARANCE: overweight ORIENTATION/CONSCIOUSNESS: Yes awake, Yes oriented to person, Yes oriented to place and Yes oriented to time Eye: COMMON NORMALS: no scleral icterus Resp: COMMON NORMALS: normal respiratory effort and clear to auscultation bilaterally AUSCULTATION: clear to auscultation bilaterally Cardio: COMMON NORMALS: regular rate and regular rhythm RATE: regular rate RHYTHM: regular rhythm GI: COMMON NORMALS: Soft to palpation, No hepatosplenomegaly present and no masses INSPECTION: Yes normal to inspection, Yes scar (multiple previous scars from abdominal surgeries) and Yes other (no incarcerated/strangulated hernias noted) AUSCULTATION: Yes Hyperactive bowel sounds present PALPATION: Yes Soft to palpation, Yes Tenderness to palpation present (GI) (LLQ/lower abdomen ) and Yes No hepatosplenomegaly present : COMMON NORMALS: Yes no CVA tenderness BLADDER/KIDNEY EXAM: Yes no CVA tenderness Back/Pelvis: COMMON NORMALS: no CVA tenderness Extremity: GENERAL: Yes normal exam except as noted Neuro: COMMON NORMALS: patient oriented x3, moves all extremities, no focal motor deficits, no sensory deficits noted and gait normal SENSORIUM/ORIENTATION: Yes alert, Yes oriented to person, Yes oriented to place and Yes oriented to time Skin: COMMON NORMALS: no rashes or lesions noted GENERAL SKIN EXAM: no rashes or lesions noted Course Vital Signs: Vital signs: Vital Signs Temperature 97.5 F L 01/30/24 12:37 Pulse Rate 83 01/30/24 12:37 Respiratory Rate 16 01/30/24 12:37 Blood Pressure 122/68 01/30/24 12:37 Pulse Oximetry 97 01/30/24 12:37 Oxygen Delivery Me thod Room Air 01/30/24 12:37 MDM - Abdominal Pain Medical Decision Making Patient clinically appears in no acute distress. Her vital signs are stable. Her blood work is unremarkable. CT scan showing a large infraumbilical ventral hernia. There is no obstruction. She is already met with a surgeon in [place] who is anticipating surgery but is requesting she loses approximately 20 pounds prior to this. At this time patient is stable for discharge from the emergency department. Return to ED precautions given. Differential Diagnosis Likely abdominal pain, diverticulitis, gastroenteritis and small bowel obstruction Medical Records I reviewed the patient's medical records. Lab Data I reviewed the patient's lab results. 01/30/24 12:52 01/30/24 12:52 Labs/Radiology: Radiology Impressions Abdomen/Pelvis CT 01/30/24 12:57 IMPRESSION: 1. Large ventral infraumbilical hernia. The hernia contains small bowel, colon and the appendix. There is no obstructive pattern. No ischemic bowel disease. Similar to the study of 07/11/2023. 2. No renal obstruction. 3. Hepatic and LEFT renal cysts. 4. Mild distal colonic diverticulosis without evidence for acute diverticulitis. Laboratory Results WBC 5.54 10^3/uL (3.29-11.43) 01/30/24 12:52 RBC 4.86 10^6/uL (3.85-5.65) 01/30/24 12:52 Hgb 14.10 g/dL (11.27-16.99) 01/30/24 12:52 Hct 42.9 % (36-47) 01/30/24 12:52 MCV 88.3 fl (85-98) 01/30/24 12:52 MCH 29.0 pg (27-33) 01/30/24 12:52 MCHC 32.9 g/dL (30-55) 01/30/24 12:52 RDW 12.4 % (12.1-15.1) 01/30/24 12:52 Plt Count 251 10^3/cmm (157-399) 01/30/24 12:52 MPV 9.4 fL (7.4-10.4) 01/30/24 12:52 Neut % (Auto) 60.3 % 01/30/24 12:52 Lymph % (Auto) 28.7 % 01/30/24 12:52 [place] % (Auto) 7.6 % 01/30/24 12:52 Eos % (Auto) 2.3 % 01/30/24 12:52 Baso % (Auto) 0.9 % 01/30/24 12:52 Neut # (Auto) 3.34 10^3/uL (1.8-7.7) 01/30/24 12:52 Lymph # (Auto) 1.6 10^3/uL (0.8-4.8) 01/30/24 12:52 [place] # (Auto) 0.4 10^3/uL (0.2-0.9) 01/30/24 12:52 Eos # (Auto) 0.1 10^3/uL (0.0-0.8) 01/30/24 12:52 Baso # (Auto) 0.1 10^3/uL (0.0-0.1) 01/30/24 12:52 Nucleated RBC % (auto) 0 % 01/30/24 12:52 Nucleated RBCs # 0.0 /100WBC 01/30/24 12:52 Sodium 134 mmol/L (136-145) L 01/30/24 12:52 Potassium 4.1 mmol/L (3.5-5.1) 01/30/24 12:52 Chloride 98 mmol/L (98-107) 01/30/24 12:52 Carbon Dioxide 25 mmol/L (22-29) 01/30/24 12:52 Anion Gap 15.1 (5-19) 01/30/24 12:52 BUN 12 mg/dL (6-20) 01/30/24 12:52 Creatinine 0.8 mg/dL (0.5-0.9) 01/30/24 12:52 GFR Calculation 74.5 mL/min (90-130) L 01/30/24 12:52 Glucose 99 mg/dL (65-115) 01/30/24 12:52 Calculated Osmolality 278 mOsm/kg (285-295) L 01/30/24 12:52 Calcium 9.6 mg/dL (8.5-10.5) 01/30/24 12:52 Total Bilirubin 0.4 mg/dL (0.15-1.2) 01/30/24 12:52 AST 35 U/L (0-32) H 01/30/24 12:52 ALT 26 U/L (0-33) 01/30/24 12:52 Alkaline Phosphatase 99 U/L (35-105) 01/30/24 12:52 Total Protein 7.3 g/dL (6.6-8.7) 01/30/24 12:52 Albumin 4.3 g/dL (3.5-5.2) 01/30/24 12:52 Globulin 3.0 g/dL (1.3-4.6) 01/30/24 12:52 Lipase 33 U/L (13-60) 01/30/24 12:52 Urine Color Yellow (Yellow) 01/30/24 13:14 Urine Appearance Clear (CLEAR) 01/30/24 13:14 Urine pH 6 (5-7) 01/30/24 13:14 Ur Specific [place] 1.025 (1.005-1.030) 01/30/24 13:14 Urine Protein Neg (Negative) 01/30/24 13:14 Urine Glucose (UA) Norm (Normal) 01/30/24 13:14 Urine Ketones Negative (Negative) 01/30/24 13:14 Urine Blood Neg (Negative) 01/30/24 13:14 Urine Nitrate Negative (Negative) 01/30/24 13:14 Urine Bilirubin Neg (Negative) 01/30/24 13:14 Urine Urobilinogen Norm mg/dL (Negative) 01/30/24 13:14 Ur Leukocyte Esterase Trace (Negative) H 01/30/24 13:14 Urine RBC None /hpf (0-2) 01/30/24 13:14 Urine WBC 0-4 /hpf (0-5) H 01/30/24 13:14 Ur Squamous Epith Cells 5-10 /hpf (0-5) H 01/30/24 13:14 Amorphous Sediment Not Reportable 01/30/24 13:14 Urine Bacteria Trace /hpf (NONE) 01/30/24 13:14 All radiology interpretation(s) finalized by discharge Discharge Plan Discharge Patient Disposition: Home Clinical Impression: Ventral hernia Qualifiers: Obstruction and gangrene presence: without obstruction or gangrene Qualified Code(s): K43.9 - Ventral hernia without obstruction or gangrene Condition: Stable Prescriptions: No Action montelukast [Singulair] 10 mg tablet 10 mg PO DAILY lisinopril 5 mg tablet 5 mg PO DAILY cholecalciferol (vitamin D3) 50 mcg (2,000 unit) capsule 50 mcg PO DAILY hydroxychloroquine 200 mg tablet 200 mg PO BID Qty: 180 1RF hydrochlorothiazide 25 mg tablet 25 mg PO DAILY norethindrone (contraceptive) 0.35 mg tablet 0.35 mg PO DAILY phentermine 37.5 mg tablet 18.75 mg PO DAILY Rx Instructions: must administer 30 minutes before or 1-2 hours after breakfast diclofenac sodium 1 % gel 2 g TOPICAL QID PRN (Reason: Pain) Rx Instructions: apply to affected area as needed atorvastatin 20 mg tablet 20 mg PO DAILY metronidazole 500 mg tablet 500 mg PO Q8H sulfamethoxazole-trimethoprim 800-160 mg tablet 1 tab PO Q12H omeprazole 40 mg capsule,delayed release(DR/EC) 40 mg PO DAILY triamcinolone acetonide 0.025 % cream 1 applic TOPICAL BID PRN (Reason: Skin Irritation) estradiol 0.01 % (0.1 mg/gram) cream 0.5 g VAGINAL .2XWEEKLY ondansetron 4 mg tablet,disintegrating 4 mg PO TID PRN (Reason: Nausea) dicyclomine 10 mg capsule 10 mg PO TID PRN (Reason: Spasms) Discharge Orders: Discharge ED (Routine); Ordered 01/30/24 Ordered By: Laura Pandya Referrals: Pancho Roper DO [Primary Care Provider] - Patient Instructions: Incisional Hernia (DC), Ventral Hernia (ED) Coding Level of Care Code 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 [place]
--- NOTE | 2024-01-30 12:57 | CT_ITS ---
WS: [id number] CT ABDOMEN AND PELVIS WITH CONTRAST HISTORY: L lower abdominal pain TECHNIQUE: Imaging performed of the abdomen and pelvis with IV contrast. Single phase imaging of the abdomen. Coronal and sagittal reformats are submitted. All CT scans at [facility] use at [address] one of these dose optimization techniques: automated exposure control; mA and/or kV adjustment per patient size (includes targeted exams where dose is matched to clinical indication); or iterative re construction. IV CONTRAST: Omnipaque 350; 100 mL IV. Oral contrast: No DLP: 926.80 mGy.cm COMPARISON: 07/11/2023 Lower thorax: Lung bases are clear. Heart is normal size. Small hiatal hernia. Liver/biliary system: Normal size liver. There are a few scattered hepatic cysts which have been pres ent on prior examinations. Very mild central bile duct dilatation is unchanged. Gallbladder: Prior cholecystectomy. Normal common bile duct. Pancreas: Normal size pancreas and pancreatic duct. No adjacent inflammation. Spleen: Normal size spleen. No mass or infarct. Adrenal glands: Normal. Right kidney: No obstruction. Extrarenal pelvis is unchanged. Left kidney: No obstruction. 2.5 cm cortical cyst upper pole. Aorta: Normal. Lymphadenopathy: None. Free fluid: None. GI tract: No GI tract obstruction. No appendicitis. The appendix extends into the ventral hernia over the pelvis. Patient has a large ventral hernia beginning at the umbilicus and extending below. The h ernia contains small bowel the appendix and a very small amount of the cecum. There is no obstructive pattern. Similar findings were noted on the prior examination. Distal colon diverticular disease. No acute diverticulitis. Abdominal wall: See above. Pelvis: No free fluid or adenopathy within the pelvis. No free fluid. Negative, nondistended urinary bladder. Bones: No destructive bone process. CT/CT abdomen pelvis w con* [id number] IMPRESSION: 1. Large ventral infraumbilical hernia. The hernia contains small bowel, colon and the appendix. There is no obstructive pattern. No ischemic bowel disease. Similar to the study of 07/11/2023. 2. No renal obstruction. 3. Hepatic and LEFT renal cysts. 4. Mild distal colonic diverticulosis without evidence for acute diverticuliti s.
[2024-01-30 12:59] LABS: Basophils # 0.1 10^3/uL (0.0-0.1); Basophils % 0.9 %; Eosinophils # 0.1 10^3/uL (0.0-0.8); Eosinophils % 2.3 %; Hematocrit 42.9 % (36-47); Lymphocytes # 1.6 10^3/uL (0.8-4.8); Lymphocytes % 28.7 %; Mean Corpuscular HGB Conc 32.9 g/dL (30-55); Mean Corpuscular Volume 88.3 fl (85-98); Mean Platelet Volume 9.4 fL (7.4-10.4); Monocytes # 0.4 10^3/uL (0.2-0.9); Monocytes % 7.6 %; Neutrophils # 3.34 10^3/uL (1.8-7.7); Neutrophils % 60.3 %; Nucleated Red Blood Cells % 0 %; Platelet Count 251 10^3/cmm (157-399); Red Blood Count 4.86 10^6/uL (3.85-5.65); Red Cell Distribution Width 12.4 % (12.1-15.1); White Blood Count 5.54 10^3/uL (3.29-11.43)
[2024-01-30 13:16] LABS: Alanine Aminotransferase 26 U/L (0-33); Albumin Level 4.3 g/dL (3.5-5.2); Alkaline Phosphatase 99 U/L (35-105); Anion Gap 15.1 (5-19); Aspartate Amino Transferase 35 U/L (0-32); Blood Urea Nitrogen 12 mg/dL (6-20); Calcium 9.6 mg/dL (8.5-10.5); Carbon Dioxide 25 mmol/L (22-29); Chloride 98 mmol/L (98-107); Creatinine Clr Calc Pharmacy 89.7325; Glomerular Filtration Rate 74.5 mL/min (90-130); Glucose 99 mg/dL (65-115); Lipase 33 U/L (13-60); Osmolality Calculated 278 mOsm/kg (285-295); Potassium 4.1 mmol/L (3.5-5.1); Sodium 134 mmol/L (136-145); Total Bilirubin 0.4 mg/dL (0.15-1.2); Total Protein 7.3 g/dL (6.6-8.7)
[2024-01-30 13:35] LABS: Add Urine Microscopic? YES; Bilirubin Urine Neg (Negative); Blood Urine Neg (Negative); Glucose Urine UA Norm (Normal); Ketones Urine Negative (Negative); Leukocyte Esterase Urine Trace (Negative); Nitrate Urine Negative (Negative); Protein Urine Neg (Negative); Specific Gravity, Urine 1.025 (1.005-1.030); Urine Appearance Clear (CLEAR); Urine Color Yellow (Yellow); Urobilinogen Urine Norm (Negative); pH Urine 6 (5-7)
[2024-01-30 13:37] LABS: Add Urine Culture? No; Bacteria Urine TRACE /hpf; WBC Urine 0-4 /hpf (0-5)
[2024-01-30] MEDS: iohexol 350 mg/mL 500 mL Btl (per mL) IV (14:04)
[2024-01-30 14:59] VITALS: BP 121/78; PULSE 79; O2SAT 98
== END 2024-01-30 15:00 | disposition home or self-care (01) ==
PROVIDERS: Emergency Provider Physician Assistant; PCP Internal Medicine
DX: K43.9 Ventral hernia without obstruction or gangrene (principal); M32.9 Systemic lupus erythematosus, unspecified
CPT/HCPCS: 36415; 74177; 80053; 81001; 83690; 85025; 99285; Q9967

== ENCOUNTER 2024-04-21 13:28 | Outpatient (CLI) | payer OTHER, BC, SELFPAY ==
--- NOTE | 2024-04-21 13:37 | MM_ITS ---
WS: [id number] BILATERAL 3D TOMOSYNTHESIS DIGITAL SCREENING MAMMOGRAM WITH CAD CLINICAL INFORMATION: SCREENING HISTORY: Screening mammogram. No current complaints. COMPARISON: 2021 TECHNIQUE: Bilateral CC and MLO views. FINDINGS: Fatty-replaced breasts bilaterally. No suspicious focal mass, asymmetry, calcifications, or architect marine ural distortion. No evidence of malignancy. MM/[place] [id number] IMPRESSION: BI-RADS: 1-Negative FOLLOW UP: 1 Year Follow-up Recommend return to annual screening mammography.
== END 2024-04-21 13:29 | disposition home or self-care (01) ==
LOC: RAD 13:29
PROVIDERS: PCP Internal Medicine; Visit Provider Internal Medicine
DX: Z12.31 Encounter for screening mammogram for malignant neoplasm of breast (principal); R92.313 Mammographic fatty tissue density, bilateral breasts
CPT/HCPCS: 77063; 77067

== ENCOUNTER → 2024-05-06 11:27 | Outpatient (BNVA) | payer OTHER, BC, SELFPAY | PROVIDERS: PCP Internal Medicine; Visit Provider Nurse Practitioner Family | DX: R30.0 Dysuria (principal); N39.0 Urinary tract infection, site not specified | CPT/HCPCS: 81000; 87086 ==

== ENCOUNTER 2024-07-14 12:42 | Emergency (ER) | payer OTHER, BC, SELFPAY ==
[2024-07-14 12:49] VITALS: BP 93/70; PULSE 66; RESP 18; TEMP 36.4; O2SAT 99
[2024-07-14 13:10] LABS: Bilirubin Urine Negative (Negative); Blood Urine Negative (Negative); Glucose Urine UA Negative (Normal); Ketones Urine Negative (Negative); Leukocyte Esterase Urine Negative (Negative); Nitrate Urine Negative (Negative); Protein Urine Negative (Negative); Specific Gravity, Urine 1.016 (1.005-1.030); Urine Appearance Clear (CLEAR); Urine Color Yellow (Yellow); Urobilinogen Urine 0.2 mg/dL (Negative); pH Urine 6.5 (5-7)
[2024-07-14 13:14] LABS: Add Urine Microscopic? YES; Bacteria Urine None Seen /hpf; Hyaline Casts Urine 0-4 /lpf; RBC Urine 0-2 /hpf (0-2); Squamous Epithelial Cell Urine 0-5 /hpf (0-5); WBC Urine 0-5 /hpf (0-5)
[2024-07-14 13:28] LABS: Basophils # 0.1 10^3/uL (0.0-0.1); Eosinophils # 0.2 10^3/uL (0.0-0.8); Eosinophils % 4.8 %; Hematocrit 43.1 % (36-47); Lymphocytes # 1.5 10^3/uL (0.8-4.8); Lymphocytes % 29.9 %; Mean Corpuscular HGB Conc 32.7 g/dL (30-55); Mean Corpuscular Hemoglobin 29.4 pg (27-33); Mean Corpuscular Volume 89.8 fl (85-98); Mean Platelet Volume 9.3 fL (7.4-10.4); Monocytes # 0.3 10^3/uL (0.2-0.9); Neutrophils # 2.91 10^3/uL (1.8-7.7); Neutrophils % 58.1 %; Nucleated Red Blood Cells % 0 %; Platelet Count 219 10^3/cmm (157-399); Red Cell Distribution Width 12.7 % (12.1-15.1); White Blood Count 5.01 10^3/uL (3.29-11.43)
[2024-07-14 13:51] LABS: Alanine Aminotransferase 29 U/L (0-33); Albumin Level 4.3 g/dL (3.5-5.2); Alkaline Phosphatase 115 U/L (35-105); Aspartate Amino Transferase 30 U/L (0-32); Blood Urea Nitrogen 10 mg/dL (6-20); Calcium 9.7 mg/dL (8.5-10.5); Carbon Dioxide 25 mmol/L (22-29); Chloride 102 mmol/L (98-107); Creatinine Clr Calc Pharmacy 103.3318; Globulin 2.7 g/dL (1.3-4.6); Glomerular Filtration Rate 86.9 mL/min (90-130); Glucose 103 mg/dL (65-115); Lipase 31 U/L (13-60); Osmolality Calculated 287 mOsm/kg (285-295); Sodium 139 mmol/L (136-145); Total Bilirubin 0.4 mg/dL (0.15-1.2)
[2024-07-14 15:02] VITALS: BP 133/92; PULSE 69; O2SAT 99
--- NOTE | 2024-07-14 15:02 | CTR_ITS ---
PROCEDURE INFORMATION: Exam: CT Abdomen And Pelvis With Contrast Exam date and time: 07/14/2024 3:31 PM Age: 53 years old Clinical indication: Abdominal pain; Generalized; Prior surgery; Surgery date: 6+ months; Surgery type: Gb, 2 on RT kidney, csection, hernia; Additional info: Llq pain TECHNIQUE: Imaging protocol: Computed tomography of the abdomen and pelvis with contrast. Radiation optimization: All CT scans at this facility use at least one of these dose optimization techniques: automated exposure control; mA and/or kV adjustment per patient size (includes targeted exams where dose is matched to clinical indication); or iterative reconstruction. Contrast material: OMNIPAQUE 350; Contrast volume: 100 ml; Contrast route: INTRAVENOUS (IV); COMPARISON: CT abdomen pelvis w con* [id number] 01/30/2024 1:57 PM RADIATION DOSE METRICS: Total DLP (mGy-cm): 936.19 FINDINGS: Liver: Right hepatic cyst. Gallbladder and biliary ducts: Cholecystectomy. Mild intrahepatic biliary prominence. Pancreas: Normal. No ductal dilation. Spleen: Normal. No splenomegaly. Adrenal glands: Normal. No mass. Kidneys and ureters: Left renal cyst. Mild right pelvocaliectasis is unchanged from January 2024. Stomach and bowel: Large anterior abdominal wall hernia containing multiple loops of bowel with smaller hernias adjacent. No evidence of bowel obstruction. No. Diverticulosis without evidence of diverticulitis. Appendix: No evidence of appendicitis. Intraperitoneal space: Unremarkable. No free air. No significant fluid collection. Vasculature: Unremarkable. No abdominal aortic aneurysm. Lymph nodes: Unremarkable. No enlarged lymph nodes. Urinary bladder: Unremarkable as visualized. Reproductive: Unremarkable as visualized. Bones/joints: Unremarkable. No acute fracture. Soft tissues: Unremarkable. CT/CT abdomen pelvis w con* [id number] IMPRESSION: 1. Multiple abdominal wall hernias. No evidence of bowel obstruction. 2. Mild stable right pelvocaliectasis without demonstrable cause. COMMENTS: Consistent with the [employer]'s Incidental Findings Committee white paper (J Am Darius Radiol 2018): Any incidental renal lesion less than 1 cm or classified as too small to characterize, or any incidental cystic renal lesion characterized as simple-appearing, is likely benign. No follow-up imaging is recommended for these lesions per consensus recommendations based on imaging criteria.
--- NOTE | 2024-07-14 15:03 | W.ED.ABDPA2 ---
HPI - Abdominal Pain General: Chief Complaint: Abdominal Pain Stated Complaint: sever pain in abd Time Seen by Provider: 07/14/24 14:57 Source: patient Mode of arrival: ambulatory Limitations: no limitations History of Present Illness: 53-year-old female states that she been having left lower abdominal pain since Friday she states she is seen at [facility] on Friday was told she could have diverticulitis started on Augmentin states she is continue to have pain she rates her pain a 5 out of 10 currently she denies any vomiting diarrhea she denies any dysuria denies any fevers Associated Symptoms: Denies chills, diarrhea, dysuria, fever(s), nausea and vomiting Related Data Home Medications Medication Instructions Recorded Confirmed montelukast 10 mg tablet 10 mg PO QPM 12/13/19 07/14/24 (Singulair) cholecalciferol (vitamin D3) 50 50 mcg PO QPM 12/14/19 07/14/24 mcg (2,000 unit) capsule lisinopril 5 mg tablet 5 mg PO QAM 12/14/19 07/14/24 atorvastatin 20 mg tablet 20 mg PO QPM 01/30/24 07/14/24 diclofenac sodium 1 % topical gel 2 g topical QID PRN Pain 01/30/24 07/14/24 estradiol 0.01% (0.1 mg/gram) 0.5 g vaginal .2XWEEKLY 01/30/24 07/14/24 vaginal cream hydrochlorothiazide 25 mg tablet 25 mg PO QAM 01/30/24 07/14/24 norethindrone (contraceptive) 0.35 0.35 mg PO QPM 07/14/24 07/14/24 mg tablet phentermine 37.5 mg tablet 18.75 mg PO DAILY 07/14/24 07/14/24 Previous Rx's Medication Instructions Recorded hydroxychloroquine 200 mg tablet 200 mg PO BID #180 tabs 04/01/24 prednisone 20 mg tablet See Rx Instructions PO .COMPLEX 04/01/24 PRN joint pain flare #30 tabs Allergies Allergy/AdvReac Type Severity Reaction Status Date / Time leflunomide Allergy Intermediate face Verified 10/28/23 15:06 started itching quickly naproxen [From Aleve] AdvReac Mild red itchy Verified 10/28/23 15:06 Review of Systems Const: Denies: fever(s), chills, body aches or change in appetite ENMT: Denies: throat pain or dental pain Card: Denies: chest pain Resp: Denies: dyspnea GI: Reports: abdominal pain; Denies: nausea, vomiting or diarrhea : Denies: dysuria Musc: Denies: neck pain or back pain Skin/Breast: Denies: rash Neuro: Denies: headache(s) PFSH ED PFSH: Medical History Inflammatory arthritis Pes anserine bursitis B/L Arthritis of carpometacarpal (CMC) joint of left thumb Skin rash Greater trochanteric pain syndrome of right lower extremity Tick bite SLE (systemic lupus erythematosus) Fibromyalgia High risk medication use Immunization counseling Family History Other CAD (coronary artery disease) Cancer Diabetes Hypertension Rheumatoid arthritis Stroke Denies family history of Systemic lupus erythematosus (SLE) in adult Social History Smoking and tobacco/nicotine status: never used tobacco/nicotine Second hand smoke exposure: No Alcohol intake: never Substance/Drug Use: never Lives independently: Yes Household members: spouse Marital status: Current gender identity: Female Special mau needs: No Physical Exam Const: COMMON NORMALS: no acute distress, patient oriented x3 and healthy appearing HENMT: COMMON NORMALS: normocephalic and atraumatic HEAD & SCALP: normocephalic and atraumatic Neck/C-Spine: COMMON NORMALS: full ROM and supple Chest: COMMONS NORMALS: normal inspection of the chest Resp: COMMON NORMALS: normal respiratory effort, No retractions, No use of accessory muscles and clear to auscultation bilaterally AUSCULTATION: clear to auscultation bilaterally Cardio: COMMON NORMALS: regular rate, regular rhythm and No murmurs present (Cardio) RATE: regular rate RHYTHM: regular rhythm GI: COMMON NORMALS: Normal to inspection, nondistended, normoactive bowel sounds present, Soft to palpation and no masses PALPATION: Yes Soft to palpation and Yes Tenderness to palpation present (GI) Details: LLQ Extremity: COMMON NORMALS: normal to inspection and full ROM Neuro: COMMON NORMALS: patient oriented x3, moves all extremities and no focal motor deficits Psych: COMMON NORMALS: mental status grossly normal, Normal thought process present and cooperative THOUGHT PROCESS: Normal thought process present Skin: COMMON NORMALS: no rashes or lesions noted and no wounds GENERAL SKIN EXAM: no rashes or lesions noted Course Vital Signs: Vital signs: Vital Signs Temperature 97.6 F 07/14/24 12:49 Pulse Rate 66 07/14/24 16:00 Respiratory Rate 18 07/14/24 15:15 Blood Pressure 133/92 07/14/24 15:02 Pulse Oximetry 98 07/14/24 16:00 Oxygen Delivery Me thod Room Air 07/14/24 16:00 MDM - Abdominal Pain Medical Decision Making Patient presents here with abdominal pain CT shows a ventral hernia she knows about no other acute findings blood work here is normal exam is benign she stable for discharge she actually has a surgeon she already sees her hernia she has to follow-up with them along with her PCP and return if worsening. Medical Records I reviewed the patient's medical records. Lab Data I reviewed the patient's lab results. 07/14/24 13:19 07/14/24 13:19 Labs/Radiology: Radiology Impressions Abdomen/Pelvis CT 07/14/24 15:02 IMPRESSION: 1. Multiple abdominal wall hernias. No evidence of bowel obstruction. 2. Mild stable right pelvocaliectasis without demonstrable cause. COMMENTS: Consistent with the [employer]'s Incidental Findings Committee white paper (J Am Darius Radiol 2018): Any incidental renal lesion less than 1 cm or classified as too small to characterize, or any incidental cystic renal lesion characterized as simple-appearing, is likely benign. No follow-up imaging is recommended for these lesions per consensus recommendations based on imaging criteria. Laboratory Results WBC 5.01 10^3/uL (3.29-11.43) 07/14/24 13:19 RBC 4.80 10^6/uL (3.85-5.65) 07/14/24 13:19 Hgb 14.10 g/dL (11.27-16.99) 07/14/24 13:19 Hct 43.1 % (36-47) 07/14/24 13:19 MCV 89.8 fl (85-98) 07/14/24 13:19 MCH 29.4 pg (27-33) 07/14/24 13:19 MCHC 32.7 g/dL (30-55) 07/14/24 13:19 RDW 12.7 % (12.1-15.1) 07/14/24 13:19 Plt Count 219 10^3/cmm (157-399) 07/14/24 13:19 MPV 9.3 fL (7.4-10.4) 07/14/24 13:19 Neut % (Auto) 58.1 % 07/14/24 13:19 Lymph % (Auto) 29.9 % 07/14/24 13:19 [place] % (Auto) 6.0 % 07/14/24 13:19 Eos % (Auto) 4.8 % 07/14/24 13:19 Baso % (Auto) 1.0 % 07/14/24 13:19 Neut # (Auto) 2.91 10^3/uL (1.8-7.7) 07/14/24 13:19 Lymph # (Auto) 1.5 10^3/uL (0.8-4.8) 07/14/24 13:19 [place] # (Auto) 0.3 10^3/uL (0.2-0.9) 07/14/24 13:19 Eos # (Auto) 0.2 10^3/uL (0.0-0.8) 07/14/24 13:19 Baso # (Auto) 0.1 10^3/uL (0.0-0.1) 07/14/24 13:19 Nucleated RBC % (auto) 0 % 07/14/24 13:19 Nucleated RBCs # 0.0 /100WBC 07/14/24 13:19 Sodium 139 mmol/L (136-145) 07/14/24 13:19 Potassium 4.0 mmol/L (3.5-5.1) 07/14/24 13:19 Chloride 102 mmol/L (98-107) 07/14/24 13:19 Carbon Dioxide 25 mmol/L (22-29) 07/14/24 13:19 Anion Gap 16.0 (5-19) 07/14/24 13:19 BUN 10 mg/dL (6-20) 07/14/24 13:19 Creatinine 0.7 mg/dL (0.5-0.9) 07/14/24 13:19 GFR Calculation 86.9 mL/min (90-130) L 07/14/24 13:19 Glucose 103 mg/dL (65-115) 07/14/24 13:19 Calculated Osmolality 287 mOsm/kg (285-295) 07/14/24 13:19 Calcium 9.7 mg/dL (8.5-10.5) 07/14/24 13:19 Total Bilirubin 0.4 mg/dL (0.15-1.2) 07/14/24 13:19 AST 30 U/L (0-32) 07/14/24 13:19 ALT 29 U/L (0-33) 07/14/24 13:19 Alkaline Phosphatase 115 U/L (35-105) H 07/14/24 13:19 Total Protein 7.0 g/dL (6.6-8.7) 07/14/24 13:19 Albumin 4.3 g/dL (3.5-5.2) 07/14/24 13:19 Globulin 2.7 g/dL (1.3-4.6) 07/14/24 13:19 Lipase 31 U/L (13-60) 07/14/24 13:19 Urine Color Yellow (Yellow) 07/14/24 12:55 Urine Appearance Clear (CLEAR) 07/14/24 12:55 Urine pH 6.5 (5-7) 07/14/24 12:55 Ur Specific [place] 1.016 (1.005-1.030) 07/14/24 12:55 Urine Protein Negative (Negative) 07/14/24 12:55 Urine Glucose (UA) Negative (Normal) 07/14/24 12:55 Urine Ketones Negative (Negative) 07/14/24 12:55 Urine Blood Negative (Negative) 07/14/24 12:55 Urine Nitrate Negative (Negative) 07/14/24 12:55 Urine Bilirubin Negative (Negative) 07/14/24 12:55 Urine Urobilinogen 0.2 mg/dL (Negative) 07/14/24 12:55 Ur Leukocyte Esterase Negative (Negative) 07/14/24 12:55 Urine RBC 0-2 /hpf (0-2) 07/14/24 12:55 Urine WBC 0-5 /hpf (0-5) 07/14/24 12:55 Ur Squamous Epith Cells 0-5 /hpf (0-5) 07/14/24 12:55 Amorphous Sediment Not Reportable 07/14/24 12:55 Urine Bacteria None seen /hpf (NONE) 07/14/24 12:55 Hyaline Casts 0-4 /lpf H 07/14/24 12:55 All radiology interpretation(s) finalized by discharge Discharge Plan Discharge Patient Disposition: Home Clinical Impression: Hernia, ventral Abdominal pain Qualifiers: Abdominal location: left lower quadrant Qualified Code(s): R10.32 - Left lower quadrant pain Condition: Stable Prescriptions: No Action montelukast [Singulair] 10 mg tablet 10 mg PO QPM lisinopril 5 mg tablet 5 mg PO QAM cholecalciferol (vitamin D3) 50 mcg (2,000 unit) capsule 50 mcg PO QPM prednisone 20 mg tablet See Rx Instructions PO .COMPLEX PRN (Reason: joint pain flare) Qty: 30 1RF Rx Instructions: Take 1 tablet by mouth daily for up to 7 days as needed for arthritis flare. hydroxychloroquine 200 mg tablet 200 mg PO BID Qty: 180 1RF phentermine 37.5 mg tablet 18.75 mg PO DAILY Rx Instructions: must administer 30 minutes before or 1-2 hours after breakfast norethindrone (contraceptive) 0.35 mg tablet 0.35 mg PO QPM hydrochlorothiazide 25 mg tablet 25 mg PO QAM diclofenac sodium 1 % gel 2 g TOPICAL QID PRN (Reason: Pain) Rx Instructions: apply to affected area as needed atorvastatin 20 mg tablet 20 mg PO QPM estradiol 0.01 % (0.1 mg/gram) cream 0.5 g VAGINAL .2XWEEKLY Discharge Orders: Discharge ED (Routine); Ordered 07/14/24 Ordered By: Jericho Freeman Referrals: Pancho Roper DO [Primary Care Provider] - 4-7 days Discharge Diet: Advance as tolerated Discharge Activity: Resume usual activity Patient Instructions: Abdominal Pain (ED) Coding Level of Care Code 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
[2024-07-14] MEDS: ondansetron 2 mg/ML SDV 2 mL 4 MG IVP (15:13)
[2024-07-14 15:15] VITALS: RESP 18; O2SAT 100
[2024-07-14] MEDS: morphine 4 mg/mL SDV 1 mL IVP (15:15)
[2024-07-14] MEDS: iohexol 350 mg/mL 500 mL Btl (per mL) IV (15:33)
[2024-07-14 16:00] VITALS: PULSE 66; O2SAT 98
[2024-07-14 16:21] VITALS: BP 118/62; PULSE 65; O2SAT 99
== END 2024-07-14 16:22 | disposition home or self-care (01) ==
PROVIDERS: Emergency Provider Emergency Medicine; PCP Internal Medicine
DX: K43.9 Ventral hernia without obstruction or gangrene (principal); R10.32 Left lower quadrant pain
CPT/HCPCS: 74177; 80053; 81001; 83690; 85025; 96374; 96375; 99285; J2270; J2405

== ENCOUNTER → 2025-01-27 14:51 | Outpatient (BNVA) | payer OTHER, BC, SELFPAY | PROVIDERS: PCP Internal Medicine; Visit Provider Internal Medicine Rheumatology | DX: Z79.899 Other long term (current) drug therapy (principal); T14.8XXA Other injury of unspecified body region, initial encounter; W57.XXXA Bitten or stung by nonvenomous insect and other nonvenomous arthropods, initial encounter | CPT/HCPCS: 36415; 80076; 82306; 82565; 84439; 84443; 85025; 85651; 86140 ==

== ENCOUNTER → 2025-07-26 14:22 | Outpatient (BNVA) | payer OTHER, BC, SELFPAY | PROVIDERS: PCP Internal Medicine; Visit Provider Internal Medicine Rheumatology | DX: Z79.899 Other long term (current) drug therapy (principal) | CPT/HCPCS: 36415; 80076; 82565; 85025; 85651; 86140; 86480 ==